=== PATIENT | male | born 1990 | race American Indian/Alaskan Native ===

== ENCOUNTER 2016-05-01 16:23 | Emergency (ER) | payer BC ==
[2016-05-01 17:40] LABS: Basophils % (Auto) 0.3 % (0.0-1.8); Eosinophils % (Auto) 0.4 % (0.0-4.3); Hematocrit 40.1 % (35.5-45.6); Hemoglobin 13.1 gm/dl (11.8-15.2); Mean Corpuscular HGB Conc 33 % (32-34); Mean Corpuscular Hemoglobin 28 pg (28-32); Mean Corpuscular Volume 85 fl (84-94); Platelet Count 231 K/mm3 (140-440); Red Blood Count 4.73 M/mm3 (3.65-5.03); Red Cell Distribution Width 15.8 % (13.2-15.2)
[2016-05-01 17:58] LABS: Alanine Aminotransferase 27 units/L (7-56); Albumin 4.3 g/dL (3.9-5); Albumin/Globulin Ratio 0.9 %; Alkaline Phosphatase 88 units/L (35-129); Anion Gap 21 mmol/L; BUN/Creatinine Ratio 9.09; Bilirubin,Total 0.3 mg/dL (0.1-1.2); Blood Urea Nitrogen 10 mg/dL (9-20); Calcium 9.5 mg/dL (8.4-10.2); Carbon Dioxide 25 mmol/L (22-30); Chloride 98.4 mmol/L (98-107); Glucose 121 mg/dL (75-100); Lipase 46 units/L (13-60); Potassium 4.2 mmol/L (3.6-5.0); Sodium 140 mmol/L (137-145); Total Protein 9.1 g/dL (6.3-8.2)
[2016-05-01 21:01] LABS: Bilirubin,Urine NEG (Negative); Blood,Urine NEG (Negative); Ketones,Urine NEG (Negative); Leukocyte Esterase,Urine NEG (Negative); Mucus,Urine FEW /HPF; Nitrite,Urine NEG (Negative); Protein,Urine <15 mg/dL mg/dL (Negative)
[2016-05-02] MEDS ORDERED: XYLOCAINE TOPICAL 4% TP ONE (01:04)
[2016-05-02] MEDS ORDERED: TORADOL IM ONE (01:04)
--- NOTE | 2016-05-02 01:06 | Emergency Department Report ---
ED General Adult HPI - General Chief complaint: Abdominal Pain Stated complaint: STOMACH PAIN/ANAL BLEEDING/CONSTIPATION Time Seen by Provider: 05/02/16 00:52 Source: patient, RN notes reviewed Mode of arrival: Ambulatory Limitations: No Limitations - History of Present Illness Initial comments: This is a 26-year-old male. He is previously unknown to me. No history of abdominal surgeries. he has a past medical history of HIV, currently on highly active antiretroviral therapy. The patient presents to the ER with multiple complaints. The patient's first complaint is rectal pain, pain with defecation, burning with defecation, brown stool mixed with red blood. This past Wednesday, the patient engaged in unprotected receptive anal intercourse with a new male partner. He reports at the male partner is also HIV positive. He initially reports that there was no lubrication used at first, and then subsequently, lubrication was used. He has no hematemesis, no dysuria, no testicular pain. The patient reports that he's also been experiencing lower abdominal discomfort since Wednesday. He reports recently starting a workout routine, and doing a lot of crunches. However, he has been doing his workout routine for a while -: Gradual Location: abdomen, pelvis (rectum) Quality: aching Consistency: intermittent Improves with: rest Worsens with: movement, other (defecation) Associated Symptoms: denies: confusion, chest pain, cough, diaphoresis, fever/ chills, headaches, malaise, nausea/vomiting, shortness of breath, syncope, weakness - Related Data Previous Rx's Medication Instructions Recorded Last Taken Type Doxycycline [Vibramycin] 100 mg PO Q12HR #28 capsule 05/02/16 Unknown Rx Lidocaine Topical 5% [Xylocaine 35.44 gm TP BID PRN #1 tube 05/02/16 Unknown Rx Topical 5%] Allergies Allergy/AdvReac Type Severity Reaction Status Date / Time No Known Allergies Allergy Verified 05/02/16 03:54 ED Review of Systems ROS: Stated complaint: STOMACH PAIN/ANAL BLEEDING/CONSTIPATION Other details as noted in HPI Constitutional: denies: fever Eyes: denies: vision change ENT: denies: epistaxis Respiratory: denies: cough Gastrointestinal: abdominal pain, hematochezia Genitourinary: denies: urgency, dysuria, frequency Musculoskeletal: denies: back pain Skin: denies: lesions Neurological: weakness Psychiatric: anxiety ED Past Medical Hx - Past Medical History Previous Medical History?: Yes Hx HIV: Yes - Surgical History Past Surgical History?: No - Social History Smoking Status: Never Smoker Substance Use Type: Alcohol - Medications Home Medications: Home Medications Medication Instructions Recorded Confirmed Last Taken Type Doxycycline [Vibramycin] 100 mg PO Q12HR #28 capsule 05/02/16 Unknown Rx Lidocaine Topical 5% [Xylocaine 35.44 gm TP BID PRN #1 tube 05/02/16 Unknown Rx Topical 5%] ED Physical Exam - General Limitations: No Limitations General appearance: alert, in no apparent distress - Head Head exam: Present: atraumatic, normocephalic - Eye Eye exam: Present: normal appearance - ENT ENT exam: Present: normal exam, normal orophraynx, mucous membranes moist, normal external ear exam - Neck Neck exam: Present: normal inspection, full ROM. Absent: tenderness, meningismus - Respiratory Respiratory exam: Present: normal lung sounds bilaterally. Absent: respiratory distress, wheezes, rales, rhonchi, stridor, chest wall tenderness, accessory muscle use, decreased breath sounds - Cardiovascular Cardiovascular Exam: Present: regular rate, normal rhythm, normal heart sounds. Absent: bradycardia, tachycardia, irregular rhythm, systolic murmur, diastolic murmur, rubs, gallop - GI/Abdominal GI/Abdominal exam: Present: soft, tenderness, normal bowel sounds, other (is mild lower abdominal tenderness, there is no rebound, guarding or peritoneal signs.). Absent: distended, guarding, rebound, rigid, pulsatile mass - Rectal Rectal exam: Present: normal inspection, normal rectal tone, other (Brown stool , no obvious blood. Anal fissure noted at 6:00. During rectal examination, I am escorted by ER dialysis biomed technician Aubrie COVINGTON. ) - exam: Present: normal inspection, testicular tenderness External exam: Present: normal external exam, other (is no testicular tenderness. There is normal testicular lie. There is minimal, mesenteric reflex bilaterally. Escorted by Karen Covington) - Extremities Exam Extremities exam: Present: normal inspection, full ROM, normal capillary refill. Absent: tenderness, pedal edema, joint swelling, calf tenderness - Back Exam Back exam: Present: normal inspection, full ROM. Absent: tenderness, CVA tenderness (R), CVA tenderness (L), muscle spasm, paraspinal tenderness, vertebral tenderness - Neurological Exam Neurological exam: Present: alert, oriented X3, normal gait, other (Extraocular movements intact. Tongue midline. No facial droop. Facial sensation intact to light touch in the V1, V2, V3 distribution bilaterally. 5 and 5 strength in 4 extremities.. Sensation is intact to light touch in 4 extremities.). Absent : motor sensory deficit - Psychiatric Psychiatric exam: Present: normal affect, normal mood - Skin Skin exam: Present: warm, dry, intact, normal color. Absent: rash ED Course Vital Signs 05/01/16 05/02/16 05/02/16 16:34 01:43 01:48 Temperature 97.5 F L 98.6 F Pulse Rate 74 78 Respiratory 18 14 Rate Blood Pressure 156/98 142/77 Blood Pressure 148/80 [Left] O2 Sat by Pulse 100 99 Oximetry 05/02/16 01:51 Temperature Pulse Rate Respiratory 14 Rate Blood Pressure Blood Pressure [Left] O2 Sat by Pulse 99 Oximetry - Reevaluation(s) Reevaluation #1: 05/02/16 02:25 Differential diagnosis: Anal fissure, constipation, appendicitis, muscle wall strain/sprain Assessment and plan: 26-year-old male with 2 complaints. Has an anal fissure after receptive anal intercourse with an adequate lubrication. He declines prophylaxis for gonorrhea, chlamydia, and hepatitis. He will be treated symptomatically for this. He is instructed to refrain from receptive anal intercourse, dietary modification instructions were reviewed, and he is going to follow-up with his primary care doctor for this. Hemoglobin and hematocrit stable/unremarkable, no gross blood noted on rectal examination, and he is also instructed in how to perform a sitz bath. Abdominal pain is most likely related to physical fitness routine. However given history of vigorous receptive anal intercourse, and lower abdominal tenderness, we will obtain a CT scan to exclude rectal perforation and atypical presentation of appendicitis. He will be treated symptomatically. We will reassess after initial data points. Gonorrhea/chlamydia swab is sent from the rectum. The patient reports no oral sex with the new partner. Reevaluation #2: 05/02/16 04:10 CT scan demonstrates proctitis, no evidence of appendicitis. Patient to be treated empirically for gonococcal proctitis. He will be treated with ceftriaxone and doxycycline. Instructed to follow up with outpatient primary care doctor and HIV specialist. Feels improved. Belly soft on repeat examination. Tolerating liquid feeds. ED Medical Decision Making - Lab Data Result diagrams: 05/01/16 17:06 05/01/16 17:06 Vital Signs 05/01/16 05/02/16 05/02/16 16:34 01:43 01:48 Temperature 97.5 F L 98.6 F Pulse Rate 74 78 Respiratory 18 14 Rate Blood Pressure 156/98 142/77 Blood Pressure 148/80 [Left] O2 Sat by Pulse 100 99 Oximetry 05/02/16 01:51 Temperature Pulse Rate Respiratory 14 Rate Blood Pressure Blood Pressure [Left] O2 Sat by Pulse 99 Oximetry Lab Results 05/01/16 05/01/16 05/01/16 Range/Units 17:06 17:06 Unknown WBC 6.0 (4.5-11.0) K/mm3 RBC 4.73 (3.65-5.03) M/mm3 Hgb 13.1 (11.8-15.2) gm/dl Hct 40.1 (35.5-45.6) % MCV 85 (84-94) fl MCH 28 (28-32) pg MCHC 33 (32-34) % RDW 15.8 H (13.2-15.2) % Plt Count 231 (140-440) K/mm3 Lymph % (Auto) 35.8 H (13.4-35.0) % [place] % (Auto) 8.8 H (0.0-7.3) % Eos % (Auto) 0.4 (0.0-4.3) % Baso % (Auto) 0.3 (0.0-1.8) % Lymph # 2.1 (1.2-5.4) K/mm3 [place] # 0.5 (0.0-0.8) K/mm3 Eos # 0.0 (0.0-0.4) K/mm3 Baso # 0.0 (0.0-0.1) K/mm3 Seg Neutrophils % 54.7 (40.0-70.0) % Seg Neutrophils # 3.3 (1.8-7.7) K/mm3 Sodium 140 (137-145) mmol/L Potassium 4.2 (3.6-5.0) mmol/L Chloride 98.4 (98-107) mmol/L Carbon Dioxide 25 (22-30) mmol/L Anion Gap 21 mmol/L BUN 10 (9-20) mg/dL Creatinine 1.1 (0.8-1.5) mg/dL Estimated GFR > 60 ml/min BUN/Creatinine Ratio 9.09 % Glucose 121 H (75-100) mg/dL Calcium 9.5 (8.4-10.2) mg/dL Total Bilirubin 0.3 (0.1-1.2) mg/dL AST 23 (5-40) units/L ALT 27 (7-56) units/L Alkaline Phosphatase 88 (35-129) units/L Total Protein 9.1 H (6.3-8.2) g/dL Albumin 4.3 (3.9-5) g/dL Albumin/Globulin Ratio 0.9 % Lipase 46 (13-60) units/L Urine Color Yellow (Yellow) Urine Turbidity Clear (Clear) Urine pH 6.0 (5.0-7.0) Ur Specific [place] 1.023 (1.003-1.030) Urine Protein <15 mg/dl (Negative) mg/dL Urine Glucose (UA) Neg (Negative) mg/dL Urine Ketones Neg (Negative) mg/dL Urine Blood Neg (Negative) Urine Nitrite Neg (Negative) Urine Bilirubin Neg (Negative) Urine Urobilinogen 2.0 (<2.0) mg/dL Ur Leukocyte Esterase Neg (Negative) Urine WBC (Auto) 1.0 (0.0-6.0) /HPF Urine RBC (Auto) 1.0 (0.0-6.0) /HPF U Epithel Cells (Auto) < 1.0 (0-13.0) /HPF Urine Mucus Few /HPF - Radiology Data Radiology results: report reviewed, image reviewed Noncontrast CT scan demonstrates no evidence of appendicitis. There are numerous enlarged perirectal lymph nodes and mucosal thickening of the rectum suggesting proctitis. Critical care attestation.: If time is entered above; I have spent that time in minutes in the direct care of this critically ill patient, excluding procedure time. ED Disposition Clinical Impression: Rectal pain Disposition: DISCHARGED TO HOME OR SELFCARE Is pt being admited?: No Does the pt Need Aspirin: No Condition: Stable Instructions: Proctitis (ED) Additional Instructions: Follow up with your primary care doctor or HIV doctor within the next week to 10 days. Make certain to engage in safe sexual practices, and always use barrier protection. I recommend outpatient testing/treatment/evaluation for hepatitis B and syphilis. Cultures were sent today, which also be available in the next 3-5 days. Have a primary care doctor contact the medical records department to obtain culture results. Eat plenty of fruits, fibers and vegetables. Return to the ER right away with severe pain, worsening pain, migration of pain, fevers or chills, intractable nausea or vomiting, inability to tolerate liquid feeds. Take the antibiotic therapy as directed, use the topical lidocaine as directed, do not apply internally. Prescriptions: Doxycycline [Vibramycin] 100 mg PO Q12HR #28 capsule Lidocaine Topical 5% [Xylocaine Topical 5%] 35.44 gm TP BID PRN #1 tube PRN Reason: Pain Referrals: ALEJANDRA ALDRICH MD [Primary Care Provider] - 3-5 Days
[2016-05-02 01:49] VITALS: BP 142/77
--- NOTE | 2016-05-02 03:26 | Cat Scan Report ---
FINAL REPORT PROCEDURE: CT ABDOMEN PELVIS WO CON TECHNIQUE: Computerized axial tomography of the abdomen and pelvis was performed without intravenous contrast. This study is performed without intravascular contrast material and its sensitivity for abdominal and pelvic pathology, including neoplasms, inflammation, abscess, free fluid, thrombosis, arterial dissection and infarction, is reduced compared with a contrast enhanced study. HISTORY: rlq pain s/p anal sex COMPARISON: No prior studies are available for comparison. FINDINGS: Visualized lower thorax: No significant abnormality. Liver: Normal size and attenuation. Spleen: Normal size and attenuation. Gallbladder and biliary system: Normal. Pancreas: Normal. Adrenals: Normal. Kidneys: There are no kidney stones. There is no hydronephrosis.. GI tract: There is no bowel obstruction, enteritis. The appendix is normal. There is mucosal thickening of the rectum and there are numerous enlarged perirectal lymph nodes suggesting proctitis.. Lymph nodes and mesentery: Normal. Vasculature: Normal. Bladder: Normal. Reproductive organs: Normal. Peritoneum: There is no ascites or free air. There is no abscess.. Musculoskeletal structures: No significant abnormality. Other: None. IMPRESSION: There are no kidney stones. There is no hydronephrosis.. There is no bowel obstruction, enteritis. The appendix is normal. There is mucosal thickening of the rectum and there are numerous enlarged perirectal lymph nodes suggesting proctitis.. There is no ascites or free air. There is no abscess.. .
[2016-05-02] MEDS ORDERED: VIBRAMYCIN PO ONE (03:29)
[2016-05-02] MEDS ORDERED: ROCEPHIN IM ONE (03:29)
[2016-05-02] MEDS ORDERED: XYLOCAINE 1% MPF 5 mL INFILTRATI ONE (03:29)
[2016-05-02] MEDS ORDERED: XYLOCAINE 1% 20 mL ONE (03:33)
== END 2016-05-02 05:25 | disposition home or self-care (01) ==
LOC: ED 16:23
DX: K62.89 Other specified diseases of anus and rectum (principal); R10.30 Lower abdominal pain, unspecified; Z21 Asymptomatic human immunodeficiency virus [HIV] infection status
CPT/HCPCS: 36415; 74176; 80053; 81001; 83690; 85025; 87591; 96372; 99284; J0696; J1885